=== PATIENT | male | born 2000 | race American Indian/Alaskan Native ===

== ENCOUNTER 2020-11-18 10:21 | Emergency (ER) | payer OTHER ==
[~2020-11-18] VITALS: Ht 172.7 cm; Wt 77.3 kg
[2020-11-18 10:34] VITALS: BP 121/67
[2020-11-18] MEDS ORDERED: HYDR-3686 PO (11:19)
[2020-11-18] MEDS ORDERED: BETA15CR4 TOP (11:19)
[2020-11-18] MEDS ORDERED: PRED20TA PO (11:19)
== END 2020-11-18 11:48 | disposition home or self-care (01) ==
LOC: ER 10:23
DX: L23.7 Allergic contact dermatitis due to plants, except food (principal); Z79.899 Other long term (current) drug therapy
CPT/HCPCS: 99283